=== PATIENT | male | born 1985 | race Caucasian/White ===

== ENCOUNTER 2022-01-07 10:47 | Outpatient (CLI) | payer OTHER, SELFPAY ==
--- NOTE | 2022-01-07 | XR_ITS ---
WS: [id number] ANKLE LEFT TECHNIQUE: 2 views of the left ankle CLINICAL INFORMATION: Pain in R an L ankles COMPARISON: 2014 FINDINGS: Prior postoperative changes screw fixation across the medial malleolus and distal tibial plafond. No evidence of hardware loosening. Normal ankle mortise. Soft tissue edema about the ankle. Talar dome a ppears normal. Hypertrophic spurring at the navicular. XR/XR ankle LT 2V [id number] IMPRESSION: 1. Prior postoperative changes screw fixation across the medial malleolus and distal tibial plafond 2. Normal ankle mortise. 3. Soft tissue edema.
--- NOTE | 2022-01-07 | XR_ITS ---
WS: [id number] ANKLE RIGHT TECHNIQUE: 2 views of the right ankle CLINICAL INFORMATION: Pain in L and R ankles COMPARISON: None. FINDINGS: Soft tissue edema. Ankle mortise is preserved with mild degenerative narrowing. No acute fractures. N ormal talar dome. XR/XR ankle RT 2V [id number] IMPRESSION: Mild degenerative arthritis RIGHT ankle with soft tissue edema. No acute fractu res.
== END 2022-01-07 10:48 | disposition home or self-care (01) ==
LOC: RAD 10:48
PROVIDERS: PCP Nurse Practitioner; Visit Provider Dermatology
DX: Z02.71 Encounter for disability determination (principal); M25.572 Pain in left ankle and joints of left foot; M19.071 Primary osteoarthritis, right ankle and foot; R60.0 Localized edema
CPT/HCPCS: 73600